=== PATIENT | female | born 1960 | race Hispanic/Latino ===

== ENCOUNTER 2016-11-29 19:29 | Emergency (ER) | payer OTHER ==
[~2016-11-29] VITALS: Ht 165.1 cm; Wt 95.3 kg
[2016-11-29 19:55] VITALS: BP 141/85
--- NOTE | 2016-11-29 20:12 | ED GENERAL ADULT ---
History of Present Illness General Chief Complaint: Shoulder Injury Stated Complaint: LEFT SHOULDER PAIN Vital Signs & Intake/Output Vital Signs & Intake/Output Vital Signs Date Time Temp Pulse Resp B/P Pulse O2 O2 Flow FiO2 Ox Delivery Rate 11/29 1954 98.2 92 16 141/85 99 Room Air Allergies Coded Allergies: No Known Allergies (11/29/16) Triage Note: PT TO TRIAGE WITH LEFT SHOULDER PAIN 05/26 x1.5 MONTH. PT HAS BEEN DOING PHYSICAL THERAPY, TAKING VALIUM AND NAPROXEN. LAST NAPROXEN THIS MORNING WITH NO PAIN RELIEF. PT DENIES ANY INJURIES. VSS. Past History Travel History Traveled to [place] past 21 day No Medical History Cardiovascular: hypertension Endocrine: diabetes Psychosocial History What is your primary language Burundian Tobacco Use: Never used Departure Departure Condition: Stable Referrals: UNKNOWN (PCP) Departure Forms: Customer Survey General Discharge Information
--- NOTE | 2016-11-29 20:25 | ED UPPER/LOWER EXTREMITY COMPL ---
History of Present Illness General Chief Complaint: Shoulder Injury Stated Complaint: LEFT SHOULDER PAIN Source: patient, family Exam Limitations: no limitations, language barrier Vital Signs & Intake/Output Vital Signs & Intake/Output Vital Signs Date Time Temp Pulse Resp B/P Pulse O2 O2 Flow FiO2 Ox Delivery Rate 11/29 1954 98.2 92 16 141/85 99 Room Air Allergies Coded Allergies: No Known Allergies (11/29/16) Reconcile Medications Hydrocodone/Acetaminophen ([place] 5-325 Tablet) 5 MG-325 MG TABLET 1-2 TAB PO Q4-6 PRN PRN pain Meloxicam (Mobic) 15 MG TABLET 1 TAB PO DAILY PRN shoulder pain/inflammation Triage Note: PT TO TRIAGE WITH LEFT SHOULDER PAIN 05/26 x1.5 MONTH. PT HAS BEEN DOING PHYSICAL THERAPY, TAKING VALIUM AND NAPROXEN. LAST NAPROXEN THIS MORNING WITH NO PAIN RELIEF. PT DENIES ANY INJURIES. VSS. Triage Nurses Notes Reviewed? yes Onset: Gradual Duration: 1.5 Timing: recent history Severity: moderate Severity Numbers: 8 Pain/Injury Location: Left: Shoulder. Method of Injury: unknown No Modifying Factors: none HPI: Patient is a 56-year-old female with history of hypertension and diabetes presenting to the emergency department with chief complaint of left shoulder pain radiating down her left arm has been constant for the past one and half months. She's been taking Valium, she's also had steroid injections for this pain with no relief. She is here today because symptoms got worse last night and she couldn't sleep. Denies any specific injury. She does report intermittent numbness and tingling going down the left shoulder starting at the neck. Denies any weakness. Denies any chest pain or palpitations. No shortness of breath. Denies any breast pain. Pain is sharp and stabbing. Worse with movement. Also no relief with physical therapy. (URBANO BARKER) Past History Travel History Traveled to [place] past 21 day No Medical History Any Pertinent Medical History? see below for history Cardiovascular: hypertension Endocrine: diabetes Surgical History Surgical History: non-contributory Psychosocial History What is your primary language Belarusian Tobacco Use: Never used Family History Hx Contributory? No (URBANO BARKER) Review of Systems Review of Systems Constitutional: Reports: no symptoms. Comments Review of systems: See HPI, All other systems negative. Constitutional, no chills fever or weight loss HEENT: No visual changes no sore throat no congestion Cardiovascular: No chest pain ,palpitation Skin, no jaundice no rashes Respiratory: No dyspnea cough sputum or hemoptysis GI: No nausea no vomiting : No dysuria No hematuria Muscle skeletal: no back pain Neurologic: No numbness no confusion Psych: No stress anxiety Immunology: No splenectomy or history of AIDS (CARLENE KHAN,URBANO) Physical Exam Physical Exam General Appearance: well developed/nourished, no apparent distress, alert, awake , comfortable Comments: Well-developed well-nourished person in no acute distress HEENT: Pupils equally round and reactive to light and accommodation. Nose is atraumatic. Neck: Supple, no lymphadenopathy, normal range of motion, tender to palpation over the left trapezius muscle. No C-spine tenderness. Back: Nontender, no CVA tenderness. Full range of motion Cardiovascular: Regular rate and rhythms no murmurs rubs or gallops, normal JVP Respiratory: Chest nontender. No respiratory distress.breath sounds clear to auscultation bilaterally Extremity: No edema, radial pulses are 2+ bilaterally. No obvious edema or deformity noted to the left upper extremity. Limited range of motion secondary to pain. Pain at approximately 90 of left shoulder abduction. Tender palpation over the left bicep tendon, positive Neer test, empty can test, More. Positive Tinel's test on the left of her family. Also positive Phalen. Neuro: Alert oriented x3, motor sensory normal Skin: No appreciable rash on exposed skin, skin is warm and dry. Psych: Mood and affect is normal, memory and judgment is normal. (CARLENE KHAN,URBANO) Progress Differential Diagnosis: contusion, dislocation, sprain, tendon injury Plan of Care: Orders Procedure Date/time Status Durable Medical Equipment 11/29 2130 Active Diagnostic Imaging: Viewed by Me: Radiology Read. Discussed w/RAD: Radiology Read. Radiology Impression: PATIENT: LIZETH HADLEY PRESENT AGE: 56 PATIENT ACCOUNT NO: [id number] : 60 LOCATION: [facility] ORDERING PHYSICIAN: URBANO KHAN SERVICE DATE: 11/29/16-2028 EXAM TYPE: RAD - XRY-SHOULDER COMPLETE-LEFT EXAMINATION: XR SHOULDER, LEFT CLINICAL INFORMATION: Left shoulder pain for the past 45 days COMPARISON: None TECHNIQUE: 3 views of the left shoulder. FINDINGS: There is no acute fracture or dislocation of left shoulder. The left humeral head is well aligned within the glenoid fossa. The acromioclavicular and coracoclavicular distances are within normal limits. There is soft tissue calcification adjacent to the left humeral head, can represent calcific tendonitis. The soft tissue is otherwise unremarkable. The visualized lungs are clear. IMPRESSION: 1. No acute fracture or dislocation of left shoulder. 2. Findings suggestive of calcific tendonitis. DICTATED BY: SARABJIT MERCADO MD DATE/TIME DICTATED:11/29/162114 PSYCHIATRIC AIDES TEACHER:VICTORINA DATE/TIME TRANSCRIBED:11/29/162114 CONFIDENTIAL, DO NOT COPY WITHOUT APPROPRIATE AUTHORIZATION. <Electronically signed in Other Vendor System> SIGNED BY: SARABJIT MERCADO MD 11/29/162120 (URBANO BARKER) Departure Departure Time of Disposition: 2127 Disposition: HOME OR SELF CARE Condition: Stable Clinical Impression Primary Impression: Calcific tendinitis Referrals: BLAS BOX,STEPHY ESCUDERO (PCP) Additional Instructions: Follow-up with orthopedic call to make an appointment. Wear sling for support. Take pain medication as prescribed. Take anti-inflammatories as prescribed. Return for worsening symptoms or concerns. Departure Forms: Customer Survey General Discharge Information Prescriptions: Current Visit Scripts Hydrocodone/Acetaminophen ([place] 5-325 Tablet) 1-2 TAB PO Q4-6 PRN PRN pain #10 TAB Meloxicam (Mobic) 1 TAB PO DAILY PRN shoulder pain/inflammation #15 TAB (URBANO BARKER) PA/PRINTER TECHNICIAN Co-Sign Statement Statement: ED Attending supervision documentation- [] I saw and evaluated the patient. I have also reviewed all the pertinent lab results and diagnostic results. I agree with the findings and the plan of care as documented in the PA's/PRINTER TECHNICIAN's documentation. [X] I have reviewed the ED Record and agree with the PA's/PRINTER TECHNICIAN's documentation. [] Additions or exceptions (if any) to the PAs/PRINTER TECHNICIAN's note and plan are summarized below: [] (RUSTY BOX,RACHEL)
--- NOTE | 2016-11-29 21:21 | RADIOLOGY REPORT ---
EXAMINATION: XR SHOULDER, LEFT CLINICAL INFORMATION: Left shoulder pain for the past 45 days COMPARISON: None TECHNIQUE: 3 views of the left shoulder. FINDINGS: There is no acute fracture or dislocation of left shoulder. The left humeral head is well aligned within the glenoid fossa. The acromioclavicular and coracoclavicular distances are within normal limits. There is soft tissue calcification adjacent to the left humeral head, can represent calcific tendonitis. The soft tissue is otherwise unremarkable. The visualized lungs are clear. IMPRESSION: 1. No acute fracture or dislocation of left shoulder. 2. Findings suggestive of calcific tendonitis.
--- NOTE | 2016-11-29 21:23 | RADIOLOGY REPORT ---
EXAMINATION: CERVICAL SPINE 6 VIEWS CLINICAL INFORMATION: Thickening. COMPARISON: None. TECHNIQUE: AP, lateral, odontoid, swimmers, bilateral oblique views of the cervical spine were obtained. FINDINGS: The cervical vertebrae are in normal alignment. Disc heights and vertebral body heights are well-preserved. There are no fractures. There is no prevertebral soft tissue swelling. Bilateral oblique views demonstrate that the neural foramen are widely patent. On the odontoid view, the atlas sits well upon the axis. IMPRESSION: Unremarkable cervical spine series.
[2016-11-29] MEDS ORDERED: MOBIC15 M1 PO (21:30)
[2016-11-29] MEDS ORDERED: NORCO 5-325 TA1 EACH PO (21:30)
== END 2016-11-29 21:51 ==
LOC: ERH 19:29
DX: M75.32 Calcific tendinitis of left shoulder (principal)
CPT/HCPCS: 72050; 73030-LT; 96372; J1885